=== PATIENT | female | born 1970 | race Caucasian/White ===

== ENCOUNTER 2017-04-04 15:00 | Inpatient (IN) | payer OTHER ==
[~2017-04-04] VITALS: Ht 165.1 cm; Wt 64.4 kg
--- NOTE | ~2017-04-04 | HP ---
Unit #: [id number] #: [id number] Patient: GLO JC [id number] [place] [address] [id number] MR#: [id number] NAME: GLO JC ROOM: P205 Age: 46 Sex: F Admission Date: 04/04/2017 : 1970 Attending Physician: Noa Ludwig M.D. Admitting Physician: Noa Ludwig M.D. Primary Care Physician: Generic Doctor Not In System HISTORY AND PHYSICAL HISTORY OF PRESENT ILLNESS Glo is a 46-year-old female admitted on 04/04/[address] [place] [address] for psychosis. She has been having auditory and visual hallucinations. PAST MEDICAL HISTORY None. PAST SURGICAL HISTORY section. SOCIAL HISTORY Smokes one pack of cigarettes daily. Denies alcohol or illegal drug use. She is currently and living with her brother. FAMILY HISTORY Noncontributory. REVIEW OF SYSTEMS CONSTITUTIONAL: No fever or chills. HEENT: Denies any sore throat, ear pain or runny nose. CARDIOVASCULAR: Denies chest pain, irregular heart rhythm or palpitations. CHEST: Denies shortness of breath or cough. No hemoptysis. GASTROINTESTINAL: Denies nausea, vomiting, diarrhea or chronic constipation. ENDOCRINE: Denies history of increased thirst or urination. No recent significant weight loss or gain. GENITOURINARY: Denies dysuria, frequency, or hematuria. SKIN: Denies any rashes. HEMATOLOGIC: Denies history of increased bleeding or bruising. MUSCULOSKELETAL: Denies any hot, swollen joints. No generalized muscle pain. NEUROLOGIC: Denies problems with vision or speech. No frequent, severe headaches. No numbness, tingling or weakness in any extremities. Denies loss of bladder or bowel control. CURRENT MEDICATIONS None. ALLERGIES None. PHYSICAL EXAMINATION Unit #: [id number] #: [id number] Patient: GLO JC GENERAL: Alert, oriented, in no acute distress. VITAL SIGNS: Blood pressure 120/86, heart rate 134, temperature 97.6. HEIGHT: 5 foot 5 inches. WEIGHT: 142 pounds. SKIN: Warm and dry without rash or lesion. HEENT: Normocephalic. TMs not viewed. Oral and nasal passages clear. Conjunctivae clear. PERRLA. EOMs intact. NECK: Supple without lymphadenopathy or thyromegaly. HEART: Regular rate and rhythm without murmur. LUNGS: Clear. ABDOMEN: Soft, nontender, without masses or hepatosplenomegaly. : Not done. EXTREMITIES: No evidence of cyanosis, clubbing or edema. Moves all without focal deficit. NEUROLOGICAL: Grossly within normal limits. Cranial Nerves: II: Visual flowers are intact. III, IV AND : Extraocular movements are intact. Pupils are equal, round and reactive to light. V: Facial sensation is grossly normal. VII: Facial movements and expression are normal. VIII: Auditory acuity grossly intact. IX, X: Uvula is midline. Phonation is normal. XI: Patient shrugs shoulders and turns head normally. XII: Tongue protrudes in the midline. Sensory and Motor Function: Sensory and motor sensation is grossly normal. Motor: moves all extremities well. Coordination: Gait is normal. Deep Tendon Reflexes: Intact. IMPRESSION Psychiatric admission. RECOMMENDATIONS Psychiatric, per psychiatrist. MEDICAL: I see no contraindications to participating in facility's activities. MEDICAL PROGNOSIS Good. MEDICAL CONDITION Stable. Dictated by... Brenden Elizabeth TD: 04/06/2017 02:24 JOB #: [id number] Unit #: [id number] #: [id number] Patient: GLO JC HISTORY AND PHYSICAL Page 1 of 1 X EDITH JOHN APRN X HISTORY AND PHYSICAL
--- NOTE | ~2017-04-04 | PN ---
Unit #: [id number] #: [id number] Patient: GRACY MOISE [id number] [facility] [address] [place] [address] [id number] MR#: [id number] NAME: GRACY MOISE ROOM: P205 Age: 46 Sex: F Admission Date: 04/04/2017 : 1970 Attending Physician: Noa Ludwig M.D. Admitting Physician: Noa Ludwig M.D. Primary Care Physician: Generic Doctor Not In System [facility] PROGRESS NOTES DATE April 08, 2017 DISCUSSION Ms. Moise is a 46-year-old white female, who was seen today and chart was reviewed and the case was discussed with the staff. She has been anxious, withdrawn, and rather seclusive to herself. Meanwhile, she has been taking the medications and tolerating them fairly well. MENTAL STATUS EXAMINATION Middle-aged white female, who was casually dressed with fair personal hygiene and appears to be in no acute distress or discomfort. The patient was awake and alert with intact orientation. Her mood was anxious with a congruent affect. The patient denies any suicidal or homicidal ideations. Her insight and judgment remain slightly impaired. TREATMENT PLAN 1. We will continue her on her current medications and treatment protocol, and will monitor her response to the medications, and make further adjustments as needed. 2. We will continue to followup. Dictated by... Noa Ludwig M.D. JAVAD/nito TD: 04/09/2017 08:29 JOB #: [id number] Unit #: [id number] #: [id number] Patient: GRACY MOISE PROGRESS NOTES Page 1 of 1 X Noa Ludwig MD X PROGRESS NOTE
--- NOTE | ~2017-04-04 | PA ---
Unit #: [id number] #: [id number] Patient: GRACY MOISE [id number] [facility] [address] [place] [address] [id number] MR#: [id number] NAME: GRACY MOISE ROOM: P205 Age: 46 Sex: F Admission Date: 04/04/2017 : 1970 Date of Assessment: Attending Physician: Noa Ludwig M.D. Admitting Physician: Noa Ludwig M.D. Primary Care Physician: Generic Doctor Not In System PSYCHIATRIC ASSESSMENT DATE OF SERVICE 04/05/2017. IDENTIFYING DATA Ms. Moise is a 46-year-old white female, who is a resident of [place], [place], and was self-referred to the hospital on a voluntary basis. CHIEF COMPLAINT "I need to get back on my medication." HISTORY OF PRESENT ILLNESS Ms. Moise is a 46-year-old white female, who presented to the hospital with symptoms of psychosis stating that she has been seeing things and that she is seeing a Roberto doll and she states that the Roberto doll is sticking his tongue out at her and the patient stated that she sees the doll right now and stated that she is bipolar and has not been on medications for the last 6 months and has been having suicidal thoughts and could not advise of the plan and stated that she was thinking about and she drove to a friend's house because she did not have a place to stay and was seen to be unkempt and disheveled on evaluation by me with persistent depressive symptoms and auditory and visual hallucinations and suicidal ideations, and as such, a recommendation for inpatient level of care for safety and stabilization was made and the patient was transferred to us. SUBSTANCE ABUSE HISTORY The patient denies any alcohol or drug abuse. PAST PSYCHIATRIC HISTORY The patient has had a history of inpatient psychiatric hospitalization at [facility] in the past and reports that she has been diagnosed and treated for bipolar disorder, but has been off her medication and out of psychiatric treatment for over 6 months and as such has been decompensating. PAST MEDICAL HISTORY No acute or chronic medical illnesses. ALLERGIES No known medication allergies. CURRENT MEDICATIONS Unit #: [id number] #: [id number] Patient: GRACY MOISE None. PERSONAL AND SOCIAL HISTORY A 46-year-old white female, who reports that she is and unemployed and lives alone and has poor social support system. MENTAL STATUS EXAMINATION Middle-aged white female, who was casually dressed with fair personal hygiene, appears to be in no acute distress or discomfort. She was awake and alert with impaired attention and concentration. Her mood was anxious and depressed with a congruent affect. Her speech was slow and restricted in content. Her thought processes were disorganized with some looseness of associations and flight of ideas and auditory and visual hallucinations and suicidal ideations. Her insight and judgment remain significantly impaired. DIAGNOSTIC IMPRESSION Psychiatric: Bipolar disorder, most recent episode depressed, recurrent, moderate, with psychosis. Medical: None. Stressors: Moderate psychosocial stressors. TREATMENT PLAN 1. The patient has presented with a history of mood disorder and has been decompensating and will need inpatient hospitalization for safety and stabilization. We will start her back on her home medications and we will adjust the medications and monitor response. 2. Supportive therapy was provided to the patient. ESTIMATED LENGTH OF STAY 5 to 7 days. ABILITY TO HELP SELF Limited. WILLINGNESS TO HELP SELF The patient appears to be willing to help self. STRENGTHS 1. Communicative. 2. Cooperative. PROBLEMS 1. Chronic dysphoric symptoms. 2. Poor social support system. DISCHARGE CRITERIA This will be contingent upon the patient's ability to show resolution of her depression and anxiety and her ability to stay safe to herself, particularly after discharge from the hospital. Dictated by... Noa Ludwig M.D. JAVAD/sagar TD: 04/05/2017 16:48 Unit #: [id number] #: [id number] Patient: GRACY MOISE JOB #: [id number] PSYCHIATRIC ASSESSMENT Page 1 of 1 X Noa Ludwig MD X PSYCHIATRIC ASSESSMENT
--- NOTE | ~2017-04-04 | DS ---
Unit #: [id number] #: [id number] Patient: [facility] [id number] [facility] [place] [address] [id number] I MR#: [id number] NAME: GRACY MOISE ROOM: [facility] Age: 46 Sex: F Admission Date: 04/04/2017 : 1970 Discharge Date: 04/09/2017 Attending Physician: Noa Ludwig M.D. Primary Care Physician: Generic Doctor Not In System DISCHARGE SUMMARY IDENTIFYING DATA Ms. Moise is a 46-year-old white female, who is a resident of [place], [place], and was self-referred to the hospital on a voluntary basis. DISCHARGE DIAGNOSES Psychiatric: Bipolar disorder, most recent episode depressed, recurrent, moderate, with psychosis. Medical: None. Stressors: Mild psychosocial stressors. HISTORY OF PRESENT ILLNESS Please see initial psychiatric evaluation for details. PAST PSYCHIATRIC HISTORY Please see initial psychiatric evaluation for details. PAST MEDICAL HISTORY Please see initial psychiatric evaluation for details. HOSPITAL COURSE The patient was admitted to the adult psychiatric unit at [facility] ra[facility] and was oriented to the hospital environment. Routine p.r.n. medications were initiated, and she was started back on her home medications and medications were adjusted, and Risperdal and Effexor were initiated as antidepressant and mood stabilizer and she was closely monitored. She was initially seen to be anxious, withdrawn, and rather seclusive to herself and not interacting or socializing very much. However, she was cooperative with the treatment recommendations and was taking the medications regularly and was able to show a decent and therapeutic response with improvement in depression and anxiety, and as such, it was decided that she will be discharged home and will continue treatment on an outpatient basis. DISCHARGE MEDICATIONS Risperdal 1 mg b.i.d. for mood disorder and Effexor XR 75 mg in the morning for depression. DISCHARGE CONDITION Stable. PROGNOSIS Fair. Unit #: [id number] #: [id number] Patient: GRACY MOISE Dictated by... Roxi Burns/sagar TD: 04/09/2017 11:14 JOB #: [id number] DISCHARGE SUMMARY Page 1 of 1 X Noa Ludwig MD DISCHARGE SUMMARY
--- NOTE | ~2017-04-04 | PN ---
Unit #: [id number] #: [id number] Patient: GRACY MOISE [id number] [facility] [address] [place] [address] [id number] MR#: [id number] NAME: GRACY MOISE ROOM: P205 Age: 46 Sex: F Admission Date: 04/04/2017 : 1970 Attending Physician: Noa Ludwig M.D. Admitting Physician: Noa Ludwig M.D. Primary Care Physician: Generic Doctor Not In System PEAJunko Tada PROGRESS NOTES DATE OF SERVICE: 04/06/2017 SUBJECTIVE Ms. Moise is a 46-year-old white female, who was seen today and chart was reviewed, and case was discussed with the staff. She remains anxious, withdrawn, in acute distress or discomfort as she goes through detox. Meanwhile, she has been taking medications and tolerating them fairly well with no reported side effects. MENTAL STATUS EXAMINATION Young white female, who was casually dressed with fair personal hygiene and appears to be in no acute distress or discomfort. She was awake and alert on interaction with intact orientation. Her mood was anxious with a congruent affect. She denies any suicidal or homicidal ideations. Her insight and judgment remain slightly impaired. TREATMENT PLAN 1. We will continue on her current medications and treatment protocol. We will monitor her response to the medication and make further adjustments as needed. 2. We will continue to follow up. Dictated by... Roxi Burns/sagar TD: 04/08/2017 03:29 JOB #: [id number] [facility] PROGRESS NOTES Page 1 of 1 X Noa Ludwig MD PROGRESS NOTE
--- NOTE | ~2017-04-04 | PN ---
Unit #: [id number] #: [id number] Patient: GRACY MOISE [id number] [facility] [address] [place] [address] [id number] MR#: [id number] NAME: GRACY MOISE ROOM: P205 Age: 46 Sex: F Admission Date: 04/04/2017 : 1970 Attending Physician: Noa Ludwig M.D. Admitting Physician: Noa Ludwig M.D. Primary Care Physician: Generic Doctor Not In System [facility] PROGRESS NOTES DATE 04/07/2017 DISCUSSION Ms. Moise is a 46-year-old white female who was seen today and chart was reviewed and case was discussed with the staff. She has been anxious, withdrawn and rather seclusive to herself. Meanwhile, she has been cooperative with treatment recommendations as she has been taking the medications and tolerating them fairly well with no reported side effects. MENTAL STATUS EXAMINATION Middle-aged white female who was casually dressed with fair personal hygiene, appears to be in no acute distress or discomfort. She was awake and alert impaired attention and concentration. Her mood was anxious with congruent affect. Her speech was slow and restricted in content. Her insight and judgement remains slightly impaired. TREATMENT PLAN 1. We will continue her on her current medications and treatment protocol. We will monitor her response to the medication and make further adjustments as needed. 2. We will continue to follow up. Dictated by... Roxi Burns/elvia TD: 04/08/2017 22:24 JOB #: [id number] Unit #: [id number] #: [id number] Patient: GRACY MOISE PROGRESS NOTES Page 1 of 1 X Noa Ludwig MD PROGRESS NOTE
[2017-04-05 12:38] LABS: BASOPHIL# 0.1 X10e3 (0-0.3); BASOPHIL% 1.1 % (0-2.5); EOSINOPHIL# 0.2 X10e3 (0-0.7); EOSINOPHIL% 3.6 % (0.0-7.0); HEMOGLOBIN 13.8 gm/dL (12.0-16.0); LYMPHOCYTE# 2.3 X10e3 (1.0-3.5); MEAN CELL VOLUME 89.2 FL (83-96); MEAN CORPUSCULAR HGB CONC 33.6 g/dL (30-36); MEAN PLATELET VOLUME 9.3 FL (6.5-11.5); MONOCYTE# 0.5 X10e3 (0-1.0); MONOCYTE% 7.2 % (3.0-12.0); NEUTROPHIL# 3.7 X10e3 (1.5-7.1); NEUTROPHIL% 54.1 % (40-75); PLATELET COUNT 326 X10e3 (140-420); RED CELL DISTRIBUTION WIDTH 14.1 % (11.0-15.5); WHITE BLOOD COUNT 6.9 X10e3 (4.0-10.5)
[2017-04-05 12:40] LABS: ALBUMIN SERUM 3.9 g/dL (3.5-5.0); BILIRUBIN,TOTAL 0.1 mg/dL (0.2-2.0); BUN/CREATININE RATIO 11.42; CALCIUM SERUM 9.4 mg/dL (8.4-10.2); CREATININE SERUM 0.7 mg/dL (0.6-1.4); GLOM FILT RATE Estimated 102.5 mL/min (>60); POTASSIUM 4.6 mmol/L (3.5-5.1); PROTEIN TOTAL SERUM 6.4 g/dL (6.0-8.3)
[2017-04-05 12:46] LABS: DIFF IND NO
[2017-04-06 10:25] LABS: URINE APPEARANCE CLOUDY; URINE BILIRUBIN NEG (NEG); URINE BLOOD NEG (NEG); URINE COLOR YELLOW; URINE GLUCOSE NEG (NEG); URINE KETONE NEG (NEG); URINE LEUKOCYTE ESTERASE 1+ (NEG); URINE NITRATE NEG (NEG); URINE PH 6.5 (5-8); URINE PROTEIN NEG (NEG); URINE SPECIFIC GRAVITY 1.025 (1.003-1.035); URINE UROBILINOGEN 0.2 MG/DL (NEG)
[2017-04-06 10:30] LABS: URINE SQUAMOUS EPITHELIAL CELL MOD /[HPF]
[2017-04-06 11:02] LABS: URINE MUCUS PRESENT
[2017-04-06 11:03] LABS: URBCS1 AUWI 0-2 /[HPF] (0-2); URINE BACTERIA AUWI 1+ (NEGATIVE)
[2017-04-06 11:08] LABS: AMPHETAMINE NEG (NEG); BARBITURATES NEG (NEG); BENZODIAZEPINES NEG (NEG); COCAINE NEG (NEG); MARIJUANA NEG (NEG); OPIATES NEG (NEG); TRICYCLIC ANTIDEPRESSANTS NEG (NEG); U METHADONE NEG (NEG)
== END 2017-04-09 12:05 | DRG 885 ==
LOC: P2S 20:05
PROVIDERS: Psychiatry & Neurology Psychiatry
DX: F31.5 Bipolar disorder, current episode depressed, severe, with psychotic features (principal); R45.851 Suicidal ideations; F17.210 Nicotine dependence, cigarettes, uncomplicated
CPT/HCPCS: 80053; 80307; 81003; 85025